=== PATIENT | male | born 1945 | race Caucasian/White ===

== ENCOUNTER 2017-04-09 19:16 | Inpatient (IN) | payer OTHER ==
[~2017-04-09] VITALS: Ht 182.9 cm; Wt 159.0 kg
[~2017-04-09 19:16] MED LIST: AMBIEN10 MG PO; AMBIEN5 MG PO; ASPIR-LOW81 MG PO; ATORVASTATIN CA40 MG PO; CELEBREX200 MG PO; COLACE100 MG PO; DULERA 100 MCG/13 GM IH; ESTER-C 1,0001 EACH PO; FIBERCON625 MG PO; FINASTERIDE5 MG PO; FLOMAX0.4 MG PO; GABAPENTIN100 MG PO; HYDROCHLOROTHIA25 MG PO; HYDROCODON-ACE1 EAC7 PO; LIDODERM 5% P1 PATCH TD; LISINOPRIL20 MG PO; LO-DOSE ASPIRIN81 M1 PO; MEN'S MULTI-VI1 EACH PO; MEN'S ONE DAIL1 EACH PO; METFORMIN HCL500 M1 PO; METFORMIN HCL500 MG PO; NUVIGIL250 MG PO; OSTEO BI-FLEX1 EAC2 PO; PANTOPRAZOLE SO40 MG PO; PROTONIX40 MG PO; ST. JOSEPH ASPI81 MG PO; STOOL SOFTENER100 MG PO; TRAMADOL HCL50 MG PO; VENTOLIN HFA18 GM IH; ZYRTEC10 M3 PO
[2017-04-09 21:15] LABS: EOSINOPHIL (%) 3.2 % (0-5); EOSINOPHIL COUNT 0.2 K/uL (0-0.3); HEMATOCRIT 38.2 % (38.0-50.0); IMMATURE GRANULOCYTE (%) 0.1 % (0.0-0.7); INSTRUMENT ABS NEUTROPHIL CT 3.9 K/uL; LYMPHOCYTE COUNT 1.9 K/uL (1.0-2.8); MCHC 33.2 G/DL (30.0-36.0); MCV 93.2 FL (86-99); MEAN PLAT.VOLUME 9.7 uM^3 (9.0-12.4); MONOCYTE (%) 12.2 % (3-12); MONOCYTE COUNT 0.9 K/uL (0-0.8); NEUTROPHIL (%) 56.5 % (45-76); NEUTROPHIL COUNT 3.9 K/uL (1.8-6.4); PLATELET COUNT 156 K/uL (156-360); RBC DIS.WIDTH-CV 12.1 % (11.8-14.6); RBC DIS.WIDTH-SD 41.7 % (39-53)
[2017-04-09 21:25] LABS: CHLORIDE 100 mEq/L (99-109); POTASSIUM 4.4 mEq/L (3.7-5.4); SODIUM 137 mEq/L (136-147)
[2017-04-09 21:27] LABS: GLUCOSE 179 mg/dL (70-99)
[2017-04-09 21:28] LABS: ANION GAP 10 MEQ/L (2-14)
[2017-04-09 21:30] LABS: GFR ESTIMATE (CALCULATED) > 59 mL/min/
[2017-04-09 21:31] LABS: UREA NITROGEN (BUN) 18 mg/dL (9-23)
[2017-04-09] MEDS ORDERED: LO-DOSE ASPIRIN81 M2 PO (22:20)
[2017-04-09] MEDS ORDERED: METFORMIN HCL1000 MG PO (22:23)
[2017-04-09] MEDS ORDERED: CALCIUM 500 +1 EACH PO (22:24)
[2017-04-09] MEDS ORDERED: TRAMADOL HCL50 MG PO (22:24)
[2017-04-09] MEDS ORDERED: CYMBALTA30 MG PO (22:25)
[2017-04-09] MEDS ORDERED: ZYRTEC10 M3 PO (22:25)
[2017-04-09] MEDS ORDERED: PROVIGIL200 MG PO (22:25)
[2017-04-09] MEDS ORDERED: CLINDAMYCIN HC300 MG PO (22:25)
[2017-04-09] MEDS ORDERED: MIRALAX255 GM PO (22:26)
[2017-04-09 22:58] LABS: ADD MIUA? NO; BILIRUBIN NEGATIVE; BLOOD NEGATIVE; COLOR YELLOW ((YELLOW)); GLUCOSE (STRIP) NEGATIVE; KETONES NEGATIVE; LEUKOCYTES NEGATIVE; NITRITE NEGATIVE; PROTEIN (STRIP) NEGATIVE; SPECIFIC GRAVITY 1.011 (1.000-1.030); UCUL ADDED? NO; UROBILINOGEN 0.2 MG/DL (0.2-1.0)
[2017-04-10] VITALS (7 sets, daily range): BP systolic 122–177; BP diastolic 58–85
[2017-04-10 08:11] LABS: EOSINOPHIL (%) 3.5 % (0-5); EOSINOPHIL COUNT 0.2 K/uL (0-0.3); HEMATOCRIT 30.9 % (38.0-50.0); IMMATURE GRANULOCYTE (%) 0.2 % (0.0-0.7); INSTRUMENT ABS NEUTROPHIL CT 2.7 K/uL; LYMPHOCYTE COUNT 2.3 K/uL (1.0-2.8); MCH 32.1 PG (29.0-34.0); MCHC 34.3 G/DL (30.0-36.0); MCV 93.6 FL (86-99); MEAN PLAT.VOLUME 9.9 uM^3 (9.0-12.4); MONOCYTE (%) 12.8 % (3-12); MONOCYTE COUNT 0.8 K/uL (0-0.8); NEUTROPHIL (%) 45.6 % (45-76); NEUTROPHIL COUNT 2.7 K/uL (1.8-6.4); PLATELET COUNT 146 K/uL (156-360); RBC DIS.WIDTH-CV 12.4 % (11.8-14.6); RBC DIS.WIDTH-SD 42.6 % (39-53)
[2017-04-10 08:27] LABS: ANION GAP 8 MEQ/L (2-14); CHLORIDE 102 MEQ/L (99-109); GFR ESTIMATE (CALCULATED) > 59 mL/min/; GLUCOSE 175 mg/dL (70-99); POTASSIUM 4.1 MEQ/L (3.7-5.4); SAMPLE HEMOLYSIS CHECK 0; SAMPLE ICTERIC CHECK 0; SAMPLE LIPEMIA CHECK 0; SODIUM 137 MEQ/L (136-147); UREA NITROGEN (BUN) 16 mg/dL (9-23)
[2017-04-10 11:35] LABS: POINT-OF-CARE METER ID UU14188577
[2017-04-10 16:45] LABS: POINT-OF-CARE METER ID UU14149397
[2017-04-10 18:48] LABS: APPEARANCE YELLOW-CLEAR; RED CELL COUNT < 1000 /MM^3 (0-1); WHITE CELL COUNT 116 /MM^3 (0-200.0)
[2017-04-10 18:55] LABS: MONONUCLEAR WBC'S 100 %; POLYNUCLEAR WBC'S 0 % (0-25); SYNOVIAL FLUID EOSINOPHILS 0 % (0-25)
[2017-04-10 21:51] LABS: POINT-OF-CARE METER ID UU14149397
[2017-04-11 03:59] VITALS: BP 101/65
[2017-04-11 06:54] LABS: HEMATOCRIT 31.2 % (38.0-50.0); MCH 30.9 PG (29.0-34.0); MCHC 33.3 G/DL (30.0-36.0); MCV 92.6 FL (86-99); MEAN PLAT.VOLUME 9.8 uM^3 (9.0-12.4); PLATELET COUNT 141 K/uL (156-360); RBC DIS.WIDTH-CV 12.2 % (11.8-14.6); RBC DIS.WIDTH-SD 41.1 % (39-53); RED BLOOD COUNT 3.37 M/uL (4.00-5.50); WHITE BLOOD COUNT 5.1 K/uL (4.1-10.2)
[2017-04-11 07:24] LABS: ANION GAP 7 MEQ/L (2-14); CHLORIDE 100 MEQ/L (99-109); GFR ESTIMATE (CALCULATED) > 59 mL/min/; SAMPLE HEMOLYSIS CHECK 0; SAMPLE ICTERIC CHECK 0; SAMPLE LIPEMIA CHECK 0; SODIUM 134 MEQ/L (136-147); UREA NITROGEN (BUN) 13 mg/dL (9-23)
[2017-04-11 07:28] LABS: GLUCOSE 109 mg/dL (70-99)
[2017-04-11 07:37] VITALS: BP 106/59
[2017-04-11 10:43] VITALS: BP 98/53
[2017-04-11 11:03] LABS: VANCOMYCIN, TROUGH 15.7 MCG/ML (10-20)
[2017-04-11 12:14] LABS: CRYSTALS NO CRYSTALS SEEN
[2017-04-11 12:20] LABS: POINT-OF-CARE METER ID UU14149397
[2017-04-11 15:18] LABS: MAGNESIUM 1.5 mg/dl (1.3-2.7)
[2017-04-11 16:25] VITALS: BP 109/66
[2017-04-11 23:54] VITALS: BP 114/53
[2017-04-12 07:23] VITALS: BP 108/54
[2017-04-12 16:11] VITALS: BP 148/75
[2017-04-12 20:23] VITALS: BP 148/69
[2017-04-12 21:32] LABS: POINT-OF-CARE METER ID UU14174225
[2017-04-13 00:15] VITALS: BP 160/65
[2017-04-13 07:29] VITALS: BP 120/63
[2017-04-13 11:10] LABS: POINT-OF-CARE METER ID UU14188625
[2017-04-13 15:50] VITALS: BP 111/62
[2017-04-13 21:27] LABS: POINT-OF-CARE METER ID UU13113717
[2017-04-14] VITALS: BP 136/67
[2017-04-14 07:26] LABS: POINT-OF-CARE METER ID UU14188625
[2017-04-14 07:48] VITALS: BP 106/54
[2017-04-14 11:36] LABS: POINT-OF-CARE METER ID UU14188625
[2017-04-14 15:23] VITALS: BP 142/65
[2017-04-14] MEDS ORDERED: DURICEF1 GM PO (15:34)
[2017-04-14 16:08] VITALS: BP 142/65
[2017-04-14 16:46] LABS: POINT-OF-CARE METER ID UU13113717
== END 2017-04-14 17:47 | disposition home or self-care (01) | DRG 603 ==
LOC: EME 19:16 → EDOF 21:54 → 3EAST 04-10 00:06 → 5SOUTH 04-12 19:58
PROVIDERS: Hospitalist; Internal Medicine; Orthopaedic Surgery; Physician Assistant; Physician Assistant Medical
PROC: 0S9D3ZX Drainage of Left Knee Joint, Percutaneous Approach, Diagnostic (ICD-10-PCS; principal; 2017-04-10)
PROC: 5A09357 Assistance with Respiratory Ventilation, Less than 24 Consecutive Hours, Continuous Positive Airway Pressure (ICD-10-PCS; 2017-04-10)
DX: L03.116 Cellulitis of left lower limb (principal); M25.462 Effusion, left knee; S80.212D Abrasion, left knee, subsequent encounter; E11.40 Type 2 diabetes mellitus with diabetic neuropathy, unspecified; I10 Essential (primary) hypertension; E78.5 Hyperlipidemia, unspecified; K21.9 Gastro-esophageal reflux disease without esophagitis; G47.33 Obstructive sleep apnea (adult) (pediatric); I25.10 Atherosclerotic heart disease of native coronary artery without angina pectoris; E11.51 Type 2 diabetes mellitus with diabetic peripheral angiopathy without gangrene; E66.01 Morbid (severe) obesity due to excess calories; J44.9 Chronic obstructive pulmonary disease, unspecified; N40.0 Benign prostatic hyperplasia without lower urinary tract symptoms; R29.6 Repeated falls; G89.29 Other chronic pain; Z68.42 Body mass index [BMI] 45.0-49.9, adult; Z79.82 Long term (current) use of aspirin; Z79.84 Long term (current) use of oral hypoglycemic drugs; Z85.46 Personal history of malignant neoplasm of prostate; Z85.828 Personal history of other malignant neoplasm of skin; Z95.1 Presence of aortocoronary bypass graft; Z88.0 Allergy status to penicillin
CPT/HCPCS: 73590; 80048; 80202; 81003; 82945 91; 82948; 83605; 83735; 85025; 85027; 85651; 87040; 87205; 89051; 89060; 93971; 94640 76; 99281; 99285; J0690; J1170; J1650; J1815; J2405; J3370; J7030; J7050; J7120; S0073